=== PATIENT | male | born 1990 | race Caucasian/White ===

== ENCOUNTER 2020-09-24 18:25 | Emergency (ER) | payer OTHER ==
[2020-09-24 19:35] VITALS: BP 129/67; PULSE 72; TEMP 98.8; BMI 25.7
== END 2020-09-24 18:45 | disposition home or self-care (01) ==
LOC: FER 18:25
DX: Z71.1 Person with feared health complaint in whom no diagnosis is made (principal)
CPT/HCPCS: 99282-25

== ENCOUNTER 2022-08-05 18:10 | Emergency (ER) | payer OTHER ==
[2022-08-05] MEDS ORDERED: IBUPROFEN 400 MG TABLET (FP) PO ONE ×2 (18:23→18:36)
[2022-08-05] MEDS ORDERED: BACITRACIN ZINC 15 GM TUBE TOPICAL OINTMENT TP ONE (18:23)
[2022-08-05 18:30] VITALS: BP 137/70; PULSE 87; RESP 20; TEMP 98.2; BMI 28.3
== END 2022-08-05 19:05 | disposition home or self-care (01) ==
LOC: FER 18:10
DX: S00.91XA Abrasion of unspecified part of head, initial encounter (principal); S60.811A Abrasion of right wrist, initial encounter; S50.312A Abrasion of left elbow, initial encounter; S80.212A Abrasion, left knee, initial encounter; Y04.2XXA Assault by strike against or bumped into by another person, initial encounter; Y35.93XA Legal intervention, means unspecified, suspect injured, initial encounter
CPT/HCPCS: 99282-25

== ENCOUNTER 2022-10-29 11:46 | Emergency (ER) | payer OTHER ==
[2022-10-29 12:01] VITALS: BP 132/89; PULSE 55; RESP 18; TEMP 98; BMI 25.7
[2022-10-29 15:38] LABS: HIV INTERPRETATION NEGATIVE (NEGATIVE)
== END 2022-10-29 12:35 | disposition home or self-care (01) ==
LOC: FER 11:46
DX: Z77.21 Contact with and (suspected) exposure to potentially hazardous body fluids (principal)
CPT/HCPCS: 36415; 86704; 86803; 87340; 87389; 87517; 99283-25

== ENCOUNTER 2022-12-28 20:50 | Emergency (ER) | payer OTHER ==
[2022-12-28] MEDS ORDERED: SULFAMETHOXAZOLE/TRIMETHOPRIM 800MG/160MG D.S. TABLET PO ONE (21:03)
[2022-12-28] MEDS ORDERED: SULFAMETHOXAZOLE/TRIMETHOPRIM 800MG/160MG D.S. TABLET ONE (21:05)
[2022-12-28 21:27] VITALS: BP 132/82; PULSE 76; RESP 16; TEMP 98.5; BMI 25.0
== END 2022-12-28 21:25 | disposition home or self-care (01) ==
LOC: FER 20:50
DX: S60.945A Unspecified superficial injury of left ring finger, initial encounter (principal); Y04.0XXA Assault by unarmed brawl or fight, initial encounter
CPT/HCPCS: 99283-25